=== PATIENT | female | born 1965 | race Caucasian/White ===

== ENCOUNTER 2017-05-16 15:36 | Outpatient (CLI) | payer OTHER ==
--- NOTE | 2017-05-16 17:16 | RAD ---
RIGHT KNEE FOUR VIEWS: History: Fall with injury to knee. FINDINGS: Joint spaces are normally maintained. No fracture. No evidence of joint effusion. IMPRESSION: No acute finding. POS: [facility]
== END 2017-05-16 15:37 | disposition home or self-care (01) ==
LOC: MADRAD 15:36
PROVIDERS: ATTEND Family Medicine
DX: M25.561 Pain in right knee (principal)

== ENCOUNTER 2017-06-15 13:59 | Outpatient (CLI) | payer OTHER ==
[~2017-06-15 13:59] MED LIST: Iopamidol 370 76% 100 ML VIAL ONE
--- NOTE | 2017-06-15 17:30 | CT ---
CT OF THE ABDOMEN AND PELVIS WITH IV AND ENTERIC CONTRAST: Date: 06/15/17 PROVIDED CLINICAL HISTORY: Abdominal pain. FINDINGS: The visualized lung bases are free of significant opacity. Changes of prior cholecystectomy are seen . The liver, spleen, pancreas, and adrenal glands appear unremarkable. Small foci of diminished atte nuation involve the right kidney, too small to definitively characterize but statistically reflectin g cysts. The left kidney appears unremarkable. There is apparent mural thickening and pericolonic fat stranding involving the distal sigmoid colon. Numerous colonic diverticula are seen. There is no bowel dilatation, additional inflammatory fat st randing, free fluid, or free air apparent. Vascular calcification is noted involving the abdominal aorta and its branches. The osseous structures demonstrate no concerning osteoblastic or osteolytic lesions. There is a 1.5 cm soft tissue density mass-like structure within the right lower quadrant peritoneal fat. This is immediately adjacent to suture material associated with the cecum that is presumably o n the basis of prior appendectomy and could potentially be postoperative in nature. IMPRESSION: 1. Findings likely reflecting uncomplicated diverticulitis involving the sigmoid colon. Inflammator y carcinoma could also be considered but is felt less likely. Follow-up endoscopy is recommended. 2. 1.5 cm soft tissue density in the right lower quadrant mesenteric fat as described above, potent ially postoperative in nature. The etiology and significance of this finding are not certain. Follow -up CT examination in 6 months is recommended to evaluate for stability. POS: [facility]
== END 2017-06-15 14:00 | disposition home or self-care (01) ==
LOC: MADCT 13:59
PROVIDERS: ATTEND Family Medicine
DX: R10.30 Lower abdominal pain, unspecified (principal); R19.00 Intra-abdominal and pelvic swelling, mass and lump, unspecified site
CPT/HCPCS: 74177

== ENCOUNTER 2017-06-18 16:02 | Emergency (ER) | payer OTHER ==
[~2017-06-18 16:02] MED LIST changes: -Iopamidol 370 76% 100 ML VIAL ONE; +Sodium Chloride 0.9% 1,000 ML BAG ONE; +Sodium Chloride 0.9% 100 ML BAG ONE
[2017-06-18] MEDS ORDERED: cefTRIAXone\\ROCEPHIN 2 GM VIAL ONE (16:48)
[2017-06-18] MEDS ORDERED: Ketorolac Tromethamine 30 MG/ML VIAL ONE (16:48)
[2017-06-18] MEDS ORDERED: Ondansetron HCl/PF 4 MG/2 ML Vial ONE (16:48)
[2017-06-18] MEDS ORDERED: Morphine 10 MG/ML VIAL ONE ×2 (16:48→19:29)
--- NOTE | 2017-06-18 17:27 | RAD ---
PORTABLE CHEST: History: Left sided chest pain. FINDINGS: Heart size is within normal limits. The left base is difficult to assess due to overlying soft tissu e. No definite confluent infiltrate. If there is any suspicion of a left sided infiltrate a PA and l ateral chest would be recommended. IMPRESSION: No definite acute process. The retrocardiac region in the left base is difficult to assess. POS: [facility]
[2017-06-18 17:28] LABS: Eosinophils 6 % (0-10); Hemoglobin 13.9 g/dL (12.0-16.0); Lymphocytes 28 % (21-51); MDiff Complete? YES; Mean Corpuscular HGB CONC 33.3 g/dL (32.0-36.0); Mean Corpuscular Hemoglobin 30.8 pg (27.0-31.0); Mean Corpuscular Volume 92.6 fl (81.0-99.0); Monocytes 7 % (0-10); Neutrophil 59 % (42-75); PLT Morphology Comment Appears Adequate; Platelet Count 252 thou/uL (130-400); RBC Distribution Width 12.8 % (11.5-14.5)
[2017-06-18 17:29] LABS: ALT (SGPT) 24 U/L (8-55); AST (SGOT) 17 U/L (5-34); Albumin 3.7 g/dL (3.5-5.0); Alkaline Phosphatase 66 U/L (40-150); Anion Gap 18 mmol/L (10-20); BUN (Urea Nitrogen) 14 mg/dL (9.8-20.1); Bilirubin, Total Less than 0.3 mg/dL (0.2-1.2); CRP (Inflammatory) 4.83 mg/dL (= or < 0.5); Calc. Creatinine Clearance 0 mL/min (70-130); Calcium 9.2 mg/dL (7.8-10.44); Carbon Dioxide 22 mmol/L (22-29); Chloride 106 mmol/L (98-107); Estimated GFR-MDRD 82; Globulin 3.3 g/dL (2.4-3.5); Glucose 93 mg/dL (70-105); Lipase 31 U/L (8-78); Potassium 4.3 mmol/L (3.5-5.1); Sodium 142 mmol/L (136-145)
[2017-06-18 17:37] LABS: Bilirubin Negative (Negative); Blood, Urine Small (Negative); Clarity Hazy (Clear); Glucose, Urine (Dipstick) Negative (Negative); Leukocyte Trace (Negative); Nitrite Negative (Negative); Protein, Urine (Dipstick) Negative (Neg-Trace); Urobilinogen 0.2 mg/dL (0.2-1.0); pH, Urine 5.5 (5.0-9.0)
[2017-06-18 17:38] LABS: Bacteria/HPF 1+ HPF (None Seen); RBC/HPF 0-3 HPF (0-3); Specific Gravity, Urine 1.005 (1.002-1.036)
== END 2017-06-18 19:45 | disposition home or self-care (01) ==
LOC: MADERS 16:02
DX: K57.92 Diverticulitis of intestine, part unspecified, without perforation or abscess without bleeding (principal); N39.0 Urinary tract infection, site not specified; F31.9 Bipolar disorder, unspecified; F17.210 Nicotine dependence, cigarettes, uncomplicated
CPT/HCPCS: 71010; 80053; 81001; 82150; 83690; 85025; 86140; 87086; 96365; 96366; 96367; 96375; 96376; J0696; J1885; J1956; J2270; J2405; J7050

== ENCOUNTER 2017-11-20 14:17 | Outpatient (CLI) | payer OTHER ==
--- NOTE | 2017-11-20 16:13 | RAD ---
LUMBAR SPINE THREE VIEWS: History: Low back pain. FINDINGS/IMPRESSION: No fracture, subluxation, or bony destruction is seen. Mild degenerative changes are present. POS: [facility]
--- NOTE | 2017-11-20 17:16 | RAD ---
CERVICAL SPINE 3 VIEWS: Date: 11/20/17 HISTORY: Neck pain. FINDINGS/IMPRESSION: There are postop changes at C5-6-7 levels. Degenerative changes are present. No fracture, subluxation , or bony destruction is identified. POS: [facility]
== END 2017-11-20 14:18 | disposition home or self-care (01) ==
LOC: MADRAD 14:17
DX: M54.2 Cervicalgia (principal); M54.5 Low back pain; M47.892 Other spondylosis, cervical region; M47.896 Other spondylosis, lumbar region; Z98.890 Other specified postprocedural states
CPT/HCPCS: 72040; 72100

== ENCOUNTER 2018-03-25 17:31 | Emergency (ER) | payer OTHER ==
[2018-03-25] MEDS ORDERED: Cephalexin 500 MG CAP ONE (18:05)
== END 2018-03-25 18:25 | disposition home or self-care (01) ==
LOC: MADERS 17:31
DX: S40.861A Insect bite (nonvenomous) of right upper arm, initial encounter (principal); G47.30 Sleep apnea, unspecified; G43.909 Migraine, unspecified, not intractable, without status migrainosus; Z87.891 Personal history of nicotine dependence; Z79.899 Other long term (current) drug therapy; W57.XXXA Bitten or stung by nonvenomous insect and other nonvenomous arthropods, initial encounter
CPT/HCPCS: 99282

== ENCOUNTER 2018-06-27 15:11 | Outpatient (CLI) | payer OTHER ==
--- NOTE | 2018-06-27 16:01 | RAD ---
THREE VIEWS LEFT SHOULDER: Comparison: None. History: Acute left shoulder pain. FINDINGS: Three views of the left shoulder shows no evidence of acute fracture or dislocation. No degenerative changes are seen. The visualized left thorax is unremarkable. IMPRESSION: No evidence of acute osseous abnormality. POS: [facility]
== END 2018-06-27 15:12 | disposition home or self-care (01) ==
LOC: MADRAD 15:11
PROVIDERS: ATTEND Family Medicine
DX: M25.512 Pain in left shoulder (principal)

== ENCOUNTER 2018-08-07 19:42 | Emergency (ER) | payer OTHER ==
[2018-08-07] MEDS ORDERED: Lidocaine 2% 20 ml MDV ONE (19:50)
[2018-08-07] MEDS ORDERED: Triple Antibiotic Oint 1 GM Packet ONE (20:03)
[2018-08-07] MEDS ORDERED: Adacel (T-DAP) 0.5 ML SYRINGE ONE (20:17)
== END 2018-08-07 20:40 | disposition home or self-care (01) ==
LOC: MADERS 19:42
DX: S61.213A Laceration without foreign body of left middle finger without damage to nail, initial encounter (principal); G43.909 Migraine, unspecified, not intractable, without status migrainosus; G47.30 Sleep apnea, unspecified; Z87.891 Personal history of nicotine dependence; Z79.899 Other long term (current) drug therapy; W45.8XXA Other foreign body or object entering through skin, initial encounter; Y92.69 Other specified industrial and construction area as the place of occurrence of the external cause; Y99.0 Civilian activity done for income or pay
CPT/HCPCS: 12001; 90471; 90715; J2001

== ENCOUNTER 2019-05-29 14:59 | Outpatient (CLI) | payer OTHER ==
--- NOTE | 2019-05-29 15:32 | RAD ---
RIGHT FOOT: 05/29/19 Three views. HISTORY: Injury. Tarsals and metatarsals appear intact. There is an obliquely oriented fracture involving the shaft of the proximal phalanx of the fourth toe . Minimal displacement. IMPRESSION: Fracture proximal phalanx fourth toe. POS: [facility]
== END 2019-05-29 15:00 | disposition home or self-care (01) ==
LOC: MADRAD 14:59
PROVIDERS: ATTEND Family Medicine
DX: S92.511A Displaced fracture of proximal phalanx of right lesser toe(s), initial encounter for closed fracture (principal)

== ENCOUNTER 2019-08-28 14:16 | Outpatient (CLI) | payer OTHER ==
--- NOTE | 2019-08-28 14:37 | RAD ---
EXAM: 3 views of the right shoulder HISTORY: Shoulder pain COMPARISON: None FINDINGS: There is no evidence of acute fracture or dislocation. No degenerative changes are present. No soft tissue swelling is seen. The visualized thorax is unremarkable. IMPRESSION: No evidence of acute osseous abnormality.
== END 2019-08-28 14:17 | disposition home or self-care (01) ==
LOC: MADRAD 14:16
PROVIDERS: ATTEND Family Medicine
DX: M25.511 Pain in right shoulder (principal); N39.0 Urinary tract infection, site not specified
CPT/HCPCS: 87086

== ENCOUNTER 2019-11-17 10:13 | Emergency (ER) | payer OTHER ==
[2019-11-17] MEDS ORDERED: Acetaminophen/Codeine 30-300mg Tablet ONE (11:16)
--- NOTE | 2019-11-17 11:24 | RAD ---
LUMBAR SPINE SERIES 2 VIEWS: Date: 11/17/2019 HISTORY: Back injury. COMPARISON: 11/20/2017 study. FINDINGS: Vertebral bodies are normal in height. There are some degenerative osteophytes along the course of th e spine without significant disc narrowing. Pedicles appear intact. Atherosclerotic changes are noted . IMPRESSION: Mild arthritic changes in the spine. No acute findings. POS: [facility]
--- NOTE | 2019-11-17 12:17 | CT ---
CT LUMBAR SPINE PERFORMED WITHOUT CONTRAST ENHANCEMENT: Date: 11/17/2019 HISTORY: Back pain status post injury. FINDINGS: Vertebral bodies are normal in height. There are small osteophytes along the course of the spine. No spondylolisthesis. Disc space height appears well maintained. The abdominal aorta is normal in calibe r. The visualized portions of the kidneys are unremarkable. Review of the disc levels show no signs of any disc herniation on this noncontrast study. No canal or foraminal stenosis. SI joints are symmetric. The sacrum shows no evidence for fracture. IMPRESSION: No acute findings of the lumbar spine. POS: [facility]
== END 2019-11-17 12:09 | disposition home or self-care (01) ==
LOC: MADERS 10:13
DX: S39.012A Strain of muscle, fascia and tendon of lower back, initial encounter (principal); G47.30 Sleep apnea, unspecified; G43.909 Migraine, unspecified, not intractable, without status migrainosus; F31.9 Bipolar disorder, unspecified; F17.210 Nicotine dependence, cigarettes, uncomplicated; Z79.899 Other long term (current) drug therapy; X50.1XXA Overexertion from prolonged static or awkward postures, initial encounter; X50.0XXA Overexertion from strenuous movement or load, initial encounter
CPT/HCPCS: 72100; 72131

== ENCOUNTER 2019-11-18 14:17 | Outpatient (CLI) | payer OTHER ==
--- NOTE | 2019-11-18 14:42 | RAD ---
Thoracic spine 3 views HISTORY: Back injury. FINDINGS: Very small ribs at the T12 level. Pedicles are intact. Vertebral body heights and AP alignm ent are maintained. Very mild osteophytosis. Minimal leftward convex curvature. Postoperative changes of the lower cervical spine partially visualized. IMPRESSION : No acute osseous abnormalities are demonstrated.
== END 2019-11-18 14:18 | disposition home or self-care (01) ==
LOC: MADRAD 14:17
PROVIDERS: ATTEND Family Medicine
DX: M54.5 Low back pain (principal)
CPT/HCPCS: 72072

== ENCOUNTER 2019-12-10 21:10 | Emergency (ER) | payer OTHER ==
[2019-12-10] MEDS ORDERED: Morphine 2 MG/ML SYRINGE ONE (22:04)
[2019-12-10] MEDS ORDERED: Morphine 4 MG/ML VIAL ONE (22:04)
[2019-12-10] MEDS ORDERED: Sodium Chloride 0.9% 1,000 ML ONE (22:05)
[2019-12-10] MEDS ORDERED: Metoclopramide HCl 10 MG/2 ML VIAL ONE (22:05)
[2019-12-10] MEDS ORDERED: Ketorolac Tromethamine 30 MG/ML VIAL ONE (22:05)
[2019-12-10] MEDS ORDERED: diphenhydrAMINE 50 MG/ML VIAL ONE (22:05)
[2019-12-10 22:14] LABS: #Basophils 0.1 thou/uL (0.0-0.2); #Eosinphils 0.2 thou/uL (0.0-0.7); #Lymphocytes 2.8 thou/uL (1.20-3.40); #Monocytes 0.7 thou/uL (0.11-0.59); %Eosinophils 1.6 % (0.0-10.0); %Lymphocytes 20.3 % (21.0-51.0); %Monocytes 5.2 % (0.0-10.0); %Neutrophils 71.9 % (42.0-75.0); Hemoglobin 13.7 g/dL (12.0-16.0); Mean Corpuscular HGB CONC 32.1 g/dL (32.0-36.0); Mean Corpuscular Hemoglobin 29.7 pg (27.0-31.0); Mean Corpuscular Volume 92.4 fL (78.0-98.0); Mean Platelet Volume 9.2 fL (7.4-10.4); Platelet Count 226 thou/uL (130-400); White Blood Cell (WBC) Count 13.9 thou/uL (4.8-10.8)
[2019-12-10 22:18] LABS: INR-International Normal Ratio 0.9; Prothrombin Time 12.4 SEC (12.0-14.7)
[2019-12-10 22:29] LABS: ALT (SGPT) 26 U/L (8-55); AST (SGOT) 17 U/L (5-34); Albumin 4.1 g/dL (3.5-5.0); Alkaline Phosphatase 78 U/L (40-110); Anion Gap 13 mmol/L (10-20); BUN (Urea Nitrogen) 22 mg/dL (9.8-20.1); Calc. Creatinine Clearance 0 mL/min (70-130); Calcium 9.1 mg/dL (7.8-10.44); Carbon Dioxide 26 mmol/L (22-29); Chloride 104 mmol/L (98-107); Estimated GFR-MDRD 72; Glucose 100 mg/dL (70-105); Potassium 4.1 mmol/L (3.5-5.1); Protein, Total 7.1 g/dL (6.0-8.3); Sodium 139 mmol/L (136-145)
[2019-12-10 22:35] LABS: Bilirubin Negative (Negative); Blood, Urine Negative (Negative); Clarity Clear (Clear); Glucose, Urine (Dipstick) Negative (Negative); Leukocyte Small (Negative); Nitrite Negative (Negative); Protein, Urine (Dipstick) Negative (Neg-Trace); Urobilinogen 0.2 mg/dL (Less than 2)
[2019-12-10 22:40] LABS: Bacteria/HPF Rare-Few HPF (None Seen); RBC/HPF 0-3 HPF (0-3); Squamous Epithelial 0-3 HPF (0-3)
[2019-12-10] MEDS ORDERED: Cephalexin 500 MG CAP ONE (22:55)
[2019-12-10 23:31] LABS: Bilirubin, Total 0.3 mg/dL (0.2-1.2)
== END 2019-12-10 23:05 | disposition home or self-care (01) ==
LOC: MADERS 21:10
DX: S16.1XXA Strain of muscle, fascia and tendon at neck level, initial encounter (principal); G43.909 Migraine, unspecified, not intractable, without status migrainosus; G47.30 Sleep apnea, unspecified; F31.9 Bipolar disorder, unspecified; F17.210 Nicotine dependence, cigarettes, uncomplicated; X50.0XXA Overexertion from strenuous movement or load, initial encounter
CPT/HCPCS: 80053; 81003; 81015; 85025; 85610; 96361; 96374; 96375; J1200; J1885; J2270; J2765; J7050

== ENCOUNTER 2019-12-11 15:32 | Emergency (ER) | payer OTHER ==
[2019-12-11] MEDS ORDERED: Dexamethasone 10 MG/ML VIAL ONE (16:33)
[2019-12-11] MEDS ORDERED: Sodium Chloride 0.9% 1,000 ML ONE (16:33)
[2019-12-11] MEDS ORDERED: Ketorolac Tromethamine 30 MG/ML VIAL ONE (16:33)
[2019-12-11] MEDS ORDERED: Promethazine HCl 25 MG/ML VIAL ONE (16:33)
[2019-12-11] MEDS ORDERED: diphenhydrAMINE 50 MG/ML VIAL ONE (16:34)
== END 2019-12-11 17:50 | disposition home or self-care (01) ==
LOC: MADERS 15:32
DX: G43.909 Migraine, unspecified, not intractable, without status migrainosus (principal); G47.30 Sleep apnea, unspecified; F31.9 Bipolar disorder, unspecified; F17.210 Nicotine dependence, cigarettes, uncomplicated; Z79.899 Other long term (current) drug therapy
CPT/HCPCS: 96365; 96375; J1100; J1200; J1885; J2550; J7050

== ENCOUNTER 2020-10-27 01:18 | Outpatient (CLI) | payer OTHER ==
--- NOTE | 2020-10-27 18:18 | RAD ---
XR Chest Pa Lat STANDARD HISTORY: Annual checkup, follow-up COMPARISON: None FINDINGS: The heart size is normal. The lungs are well expanded without focal areas of consolidation, pneumothorax or pleural effusions. There are postop changes in the lower cervical spine. No acute osseous abnormalities are seen. IMPRESSION: No radiographic evidence of acute cardiopulmonary process.
== END 2020-10-27 01:19 | disposition home or self-care (01) ==
LOC: MADRAD 01:18
PROVIDERS: ATTEND Specialist
DX: J44.9 Chronic obstructive pulmonary disease, unspecified (principal)
CPT/HCPCS: 71046

== ENCOUNTER 2021-02-10 02:53 | Emergency (ER) | payer OTHER ==
[2021-02-10 03:18] LABS: #Basophils 0.1 thou/uL (0.0-0.2); #Eosinphils 0.2 thou/uL (0.0-0.7); #Lymphocytes 4.2 thou/uL (1.20-3.40); #Monocytes 0.9 thou/uL (0.11-0.59); #Neutrophils 9.2 thou/uL (1.40-6.50); %Basophils 0.9 % (0.0-1.0); %Eosinophils 1.2 % (0.0-10.0); %Lymphocytes 28.8 % (21.0-51.0); %Neutrophils 63.1 % (42.0-75.0); Hemoglobin 14.9 g/dL (12.0-16.0); Mean Corpuscular HGB CONC 31.9 g/dL (32.0-36.0); Mean Corpuscular Hemoglobin 29.3 pg (27.0-31.0); Mean Corpuscular Volume 91.8 fL (78.0-98.0); Mean Platelet Volume 9.3 fL (7.4-10.4); Platelet Count 269 thou/uL (130-400); RBC Distribution Width 13.1 % (11.5-14.5); Red Blood Cell (RBC) Count 5.08 mill/uL (4.20-5.40); White Blood Cell (WBC) Count 14.6 thou/uL (4.8-10.8)
[2021-02-10 03:35] LABS: ALT (SGPT) 17 U/L (8-55); AST (SGOT) 14 U/L (5-34); Alkaline Phosphatase 75 U/L (40-110); Anion Gap 12 mmol/L (10-20); BUN (Urea Nitrogen) 16 mg/dL (9.8-20.1); Bilirubin, Total 0.7 mg/dL (0.2-1.2); Calc. Creatinine Clearance 0 mL/min (70-130); Calcium 9.2 mg/dL (7.8-10.44); Carbon Dioxide 27 mmol/L (22-29); Chloride 107 mmol/L (98-107); Globulin 3.2 g/dL (2.4-3.5); Glucose 105 mg/dL (70-105); Lipase 25 U/L (8-78); Potassium 4.2 mmol/L (3.5-5.1); Protein, Total 7.2 g/dL (6.0-8.3); Sodium 142 mmol/L (136-145)
[2021-02-10] MEDS ORDERED: Ondansetron PF 4 MG/2 ML Vial ONE (05:08)
[2021-02-10] MEDS ORDERED: Sodium Chloride 0.9% 100 ML ONE (06:11)
[2021-02-10] MEDS ORDERED: Ertapenem 1 GM VIAL ONE (06:11)
[2021-02-10] MEDS ORDERED: Ketorolac Tromethamine 30 MG/ML VIAL ONE ×2 (06:18→06:21)
== END 2021-02-10 07:05 | disposition home or self-care (01) ==
LOC: MADERS 02:53
DX: K57.32 Diverticulitis of large intestine without perforation or abscess without bleeding (principal); E04.1 Nontoxic single thyroid nodule; G47.30 Sleep apnea, unspecified; G43.909 Migraine, unspecified, not intractable, without status migrainosus; F17.210 Nicotine dependence, cigarettes, uncomplicated
CPT/HCPCS: 71260; 74177; 80053; 83605; 83690; 85025; 96365; 96375; J1335; J1885; J2405; J3490

== ENCOUNTER 2021-04-07 17:23 | Outpatient (CLI) | payer OTHER | END 2021-04-07 17:24 | disposition home or self-care (01) | LOC: MADLAB 17:23 | PROVIDERS: ATTEND Otolaryngology Plastic Surgery within the Head & Neck | DX: J32.8 Other chronic sinusitis (principal); J32.2 Chronic ethmoidal sinusitis; J34.89 Other specified disorders of nose and nasal sinuses; Z98.890 Other specified postprocedural states ==

== ENCOUNTER 2021-09-15 21:44 | Outpatient (CLI) | payer OTHER ==
[2021-09-15 22:47] LABS: SARS-CoV-2 NAA Rapid Test DETECTED (NotDetected)
== END 2021-09-15 21:45 | disposition home or self-care (01) ==
LOC: MADLAB 21:44
PROVIDERS: ATTEND Family Medicine
DX: U07.1 COVID-19 (principal)
CPT/HCPCS: U0002

== ENCOUNTER 2024-10-09 15:11 | Emergency (ER) | payer BC, OTHER ==
[~2024-10-09 15:11] MED LIST changes: +Iopamidol 370 76% 100 ML VIAL ONE; -Sodium Chloride 0.9% 1,000 ML BAG ONE; -Sodium Chloride 0.9% 100 ML BAG ONE
[2024-10-09] MEDS ORDERED: Morphine 4 MG/ML VIAL ONE (15:25)
[2024-10-09] MEDS ORDERED: Ondansetron PF 4 MG/2 ML Vial ONE (15:26)
[2024-10-09] MEDS ORDERED: Famotidine/PF 20 mg/2ml Vial ONE (15:26)
[2024-10-09] MEDS ORDERED: HYDROmorphone 0.5 MG/0.5 ML SYRINGE ONE (15:41)
[2024-10-09 16:00] LABS: ALT (SGPT) 28 U/L (Less than 34); AST (SGOT) 22 U/L (11-34); Alkaline Phosphatase 67 U/L (40-110); Anion Gap 16 mmol/L (10-20); BUN (Urea Nitrogen) 22 mg/dL (9.8-20.1); Bilirubin, Total 0.6 mg/dL (0.3-1.2); Calc. Creatinine Clearance 0 mL/min (70-130); Calcium 9.3 mg/dL (7.8-10.44); Carbon Dioxide 18 mmol/L (22-29); Chloride 109 mmol/L (98-107); Estimated GFR 100; Globulin 2.9 g/dL (2.4-3.5); Glucose 105 mg/dL (70-105); Lipase 46 U/L (8-78); Protein, Total 6.9 g/dL (6.0-8.3); Sodium 139 mmol/L (136-145)
[2024-10-09 16:02] LABS: Troponin I Less than 0.010 ng/mL (< 0.028)
[2024-10-09 16:11] LABS: Band 5 % (5-11); Hematocrit 40.5 % (36.0-47.0); Hemoglobin 13.2 g/dL (12.0-16.0); Hypochromia SLIGHT = 6-15 cells (100X) (0-5/hpf); Lymphocytes 8 % (21-51); MDiff Complete? YES; Mean Corpuscular HGB CONC 32.6 g/dL (32.0-36.0); Mean Corpuscular Hemoglobin 29.1 pg (27.0-31.0); Mean Corpuscular Volume 89.3 fl (78.0-98.0); Mean Platelet Volume 8.4 fL (7.4-10.4); Monocytes 4 % (0-10); Neutrophil 79 % (42-75); Platelet Adequacy Comment Appears Adequate; Platelet Count 278 10x3/uL (130-400); RBC Distribution Width 12.4 % (11.5-14.5); Red Blood Cell (RBC) Count 4.54 mill/uL (4.20-5.40); White Blood Cell (WBC) Count 18.5 10x3/uL (4.8-10.8)
[2024-10-09 17:26] LABS: Bilirubin Negative (Negative); Blood, Urine Negative (Negative); Clarity Slightly Cloudy (Clear); Glucose, Urine (Dipstick) Negative (Negative); Ketone, Urine 15 mg/dL (Negative); Leukocyte Negative (Negative); Nitrite Negative (Negative); Protein, Urine (Dipstick) Negative (Neg-Trace); Specific Gravity, Urine 1.015 (1.005-1.030); Urobilinogen 0.2 mg/dL (Less than 2); pH, Urine 8.5 (5.0-9.0)
[2024-10-09 17:32] LABS: Bacteria/HPF 1+ HPF (None Seen); CAUTI Indications for Culture Pelvic or flank pain; RBC/HPF 0-3 HPF (0-3); Squamous Epithelial 0-3 HPF (0-3); WBC/HPF 0-3 HPF (0-3)
[2024-10-09 17:33] LABS: Urine Culture Reflex No No
[2024-10-09] MEDS ORDERED: HYDROcodone/Acetaminophen 10/325 mg Tablet ONE (18:37)
[2024-10-09] MEDS ORDERED: Piperacillin/Tazobactam 3.375 GM VIAL ONE (18:37)
[2024-10-09] MEDS ORDERED: Sodium Chloride 0.9% 100 ML ONE (18:37)
== END 2024-10-10 00:20 | disposition short-term general hospital (02) ==
LOC: MADERS 15:11
DX: K57.30 Diverticulosis of large intestine without perforation or abscess without bleeding (principal); R10.30 Lower abdominal pain, unspecified; F17.210 Nicotine dependence, cigarettes, uncomplicated; G47.00 Insomnia, unspecified; Z79.82 Long term (current) use of aspirin; Z79.899 Other long term (current) drug therapy
CPT/HCPCS: 74177; 80053; 81001; 83605; 83690; 84484; 85025; 87081; 87428; 87430; 96361; 96365; 96375; J1171; J2270; J2405; J2543; J3490; Q9967